=== PATIENT | male | born 1960 | race Caucasian/White ===

== ENCOUNTER 2019-11-04 15:43 | Observation (INO) | payer OTHER ==
[2019-11-04] MEDS ORDERED: Metoprolol Tartrate 5 MG/5 ML SDV IVPUSH ONE ×3 (16:13→16:47)
[2019-11-04] MEDS: Sodium Chloride 0.9% 10 ML Syringe FLUSH PRN (16:21)
[2019-11-04] MEDS ORDERED: Diltiazem 25 MG/5 ML SDV IVPUSH ONE ×2 (16:55→17:12)
[2019-11-04] MEDS ORDERED: Diltiazem 125 MG in Sodium Chloride 0.9% 100 ML IV SCH (17:30)
[2019-11-04] MEDS ORDERED: Ondansetron 4 MG/2 ML SDV IV PRN (17:32)
[2019-11-04] MEDS ORDERED: traMADol 50 MG Tab PO ONE (17:49)
[2019-11-04] MEDS ORDERED: Acetaminophen 500 MG Tab PO ONE (17:49)
[2019-11-04] MEDS ORDERED: Amiodarone 150 MG/3 ML SDV IVPUSH ONE (17:53)
[2019-11-04] MEDS: Nitroglycerin 0.4 MG Tab.SL SL PRN ×2 (18:15→18:20)
[2019-11-04] MEDS ORDERED: Enoxaparin 40 MG/0.4 ML Syringe SUBCUT SCH (18:45)
[2019-11-04] MEDS ORDERED: Sodium Chloride 0.9% 1,000 ML IV SCH (19:00)
[2019-11-04] MEDS: Acetaminophen 325 MG Tab PO PRN (23:37)
--- NOTE | 2019-11-05 00:13 | EDM.PDOC ---
ED HPI GENERAL MEDICAL PROBLEM - General Chief Complaint: Cardiovascular Problem Stated Complaint: HEART ISSUES Time Seen by Provider: 11/04/19 15:45 Source of Information: Reports: Patient History Limitations: Reports: No Limitations - History of Present Illness INITIAL COMMENTS - FREE TEXT/NARRATIVE: Patient presented to the ED from the clinic because of 1 week history of palpitations,chest tightness, dizziness. He also c/o headache but there is no fever chills or neck stiffness. He denies having any dyspnea,or edema but he gained a lot for the past month. An EKG was done in the clinic which showed AFIB with RVR and patient was subsequently referred to be evaluated in the ED. - Related Data Allergies Allergy/AdvReac Type Severity Reaction Status Date / Time No Known Allergies Allergy Verified 11/04/19 16:08 Home Meds: Home Meds Acetaminophen [Pain Relief] 650 mg PO Q4HR PRN 11/04/19 [History] Cannabidiol (Cbd) Extract [CBD Oil] 17 mg PO ASDIRECTED 11/04/19 [History] Past Medical History Respiratory History: Reports: Other (See Below) Other Respiratory History: HAYFEVER Other Gastrointestinal History: HX GASTRIC ULCER FROM [facility], LEFT INGUINAL HERNIA REPAIR,SMALL BOWEL INTUSSUSEPTION Other Genitourinary History: RENAL CYSTS Musculoskeletal History: Reports: Back Pain, Chronic Other Musculoskeletal History: FACET ARTHROPATHY, LUMBAR Hematologic History: Reports: Anemia Oncologic (Cancer) History: Reports: Other (See Below) Other Oncologic History: states has had skin cancer leisons rmoved in the past Dermatologic History: Reports: Melanoma - Infectious Disease History Infectious Disease History: Reports: Chicken Pox, Measles, Mumps - Past Surgical History HEENT Surgical History: Reports: Oral Surgery GI Surgical History: Reports: Colonoscopy, EGD Musculoskeletal Surgical History: Reports: Other (See Below) Social & Family History - Family History Family Medical History: Noncontributory - Tobacco Use Smoking Status *Q: Former Smoker Used Tobacco, but Quit: Yes Month/Year Tobacco Last Used: 08/1998 - Caffeine Use Caffeine Use: Reports: Coffee - Recreational Drug Use Recreational Drug Use: Yes Recreational Drug Type: Reports: Other (see below) Other Recreational Drug Type: cbd oil Recreational Drug Use Frequency: Weekly ED ROS GENERAL - Review of Systems Review Of Systems: See Below Constitutional: Reports: Weight Gain. Denies: Fever, Chills HEENT: Reports: No Symptoms Respiratory: Reports: No Symptoms Cardiovascular: Reports: Chest Pain, Palpitations. Denies: Dyspnea on Exertion Endocrine: Reports: No Symptoms GI/Abdominal: Reports: No Symptoms : Reports: No Symptoms Musculoskeletal: Reports: No Symptoms Skin: Reports: No Symptoms Neurological: Reports: Paresthesia Psychiatric: Reports: No Symptoms ED EXAM, GENERAL - Physical Exam Exam: See Below Exam Limited By: No Limitations General Appearance: Alert, WD/WN, No Apparent Distress Eye Exam: Bilateral Eye: PERRL Ears: Normal External Exam, Normal Canal Nose: Normal Inspection, Normal Mucosa, No Blood Throat/Mouth: Normal Inspection, Normal Lips, Normal Teeth, Normal Gums Head: Atraumatic, Normocephalic Neck: Normal Inspection, Supple, Non-Tender, Full Range of Motion Respiratory/Chest: No Respiratory Distress, Lungs Clear, Normal Breath Sounds, No Accessory Muscle Use, Chest Non-Tender Cardiovascular: Normal Peripheral Pulses, No Edema, No Gallop, No JVD, No Murmur , No Rub, Tachycardia, Irregularly Irregular GI/Abdominal: Normal Bowel Sounds, Soft, Non-Tender, No Organomegaly, No Distention, No Abnormal Bruit, No Mass Back Exam: Normal Inspection, Full Range of Motion Course - Vital Signs Text/Narrative:: labs/EKG was discussed with the patient and verbalized understanding EKG-AFIB with RVR-140's trop-neg Patient was given 3 doses of lopressor 5 mg IV but his HR has not significantly improved. He was given cardizem 25 mg IV x1 with a repeat loading dose of 35 mg IVx1 before he was started on the cardizem drip at 10 mg/hr. He later converted to a sinus rhythm and his second troponin was negative. Last Recorded V/S: Last Vital Signs Temp 36.3 C 11/04/19 23:00 Pulse 70 11/04/19 23:00 Resp 18 11/04/19 23:00 BP 140/79 11/04/19 23:00 Pulse Ox 95 11/04/19 23:00 - Orders/Labs/Meds Orders: Active Orders 24 hr Category Date Time Status Patient Status [ADT] Routine ADT 11/04/19 17:32 Active Cardiac Monitoring [RC] CONTINUOUS Care 11/04/19 17:38 Active EKG Documentation Completion [RC] ASDIRECTED Care 11/04/19 17:45 Active Oxygen Therapy [RC] PRN Care 11/04/19 17:32 Active Pulse Oximetry [RC] CONTINUOUS Care 11/04/19 17:38 Active Up With Assistance [RC] ASDIRECTED Care 11/04/19 17:32 Active VTE/DVT Education [RC] Per Unit Routine Care 11/04/19 17:32 Active Vital Signs [RC] Q4H Care 11/04/19 17:32 Active Heart Healthy Diet [DIET] Diet 11/04/19 Dinner Ordered BASIC METABOLIC PANEL,BMP [CHEM] AM Lab 11/05/19 05:11 Ordered CBC WITH AUTO DIFF [HEME] AM Lab 11/05/19 05:11 Ordered TROPONIN I [CHEM] Stat Lab 11/05/19 06:00 Ordered Diltiazem 125 mg Med 11/04/19 17:30 Active Sodium Chloride 0.9% [Normal Saline] 100 ml IV TITRATE Enoxaparin [Lovenox] Med 11/04/19 18:45 Active 40 mg SUBCUT DAILY Nitroglycerin [Nitrostat] Med 11/04/19 18:15 Active 0.4 mg SL Q5M PRN Ondansetron [Zofran] Med 11/04/19 17:32 Active 4 mg IV Q4H PRN Sodium Chloride 0.9% [Normal Saline] 1,000 ml Med 11/04/19 19:00 Active IV ASDIRECTED Sodium Chloride 0.9% [Saline Flush] Med 11/04/19 16:15 Active 10 ml FLUSH ASDIRECTED PRN Peripheral IV Insertion Adult [OM.PC] Routine Oth 11/04/19 15:45 Ordered Resuscitation Status Routine Resus Stat 11/04/19 17:32 Ordered EKG 12 Lead [EK] AM Ther 11/05/19 05:11 Ordered Medication Orders Acetaminophen (Tylenol) 650 mg PO Q4H PRN PRN Reason: Headache Last Admin: 11/04/19 23:37 Dose: 650 mg Enoxaparin Sodium (Lovenox) 40 mg SUBCUT DAILY DEIDRE Last Admin: 11/04/19 18:48 Dose: 40 mg Diltiazem HCl 125 mg/ Sodium (Chloride) 125 mls @ 5 mls/hr IV TITRATE DEIDRE; Protocol Last Titration: 11/04/19 18:28 Dose: 0 mg/hr, 0 mls/hr Titration: 11/04/19 18:02 Dose: 5 mg/hr, 5 mls/hr Admin: 11/04/19 17:41 Dose: 10 mg/hr, 10 mls/hr Sodium Chloride (Normal Saline) 1,000 mls @ 999 mls/hr IV ASDIRECTED DEIDRE Last Admin: 11/04/19 18:35 Dose: 999 mls/hr Nitroglycerin (Nitrostat) 0.4 mg SL Q5M PRN PRN Reason: Chest Pain Last Admin: 11/04/19 18:20 Dose: 0.4 mg Admin: 11/04/19 18:15 Dose: 0.4 mg Ondansetron HCl (Zofran) 4 mg IV Q4H PRN PRN Reason: Nausea/Vomiting Sodium Chloride (Saline Flush) 10 ml FLUSH ASDIRECTED PRN PRN Reason: Keep Vein Open Last Admin: 11/04/19 16:21 Dose: 10 ml Labs: Laboratory Tests 11/04/19 11/04/19 11/04/19 Range/Units 16:00 16:00 16:00 WBC 5.3 (4.5-12.0) X10-3/uL RBC 5.26 (4.30-5.75) x10(6)uL Hgb 15.8 (13.5-17.8) g/dL Hct 47.7 D (30.0-51.3) % MCV 90.6 (80-96) fL MCH 30.0 (27.7-33.6) pg MCHC 33.1 (32.2-35.4) g/dL RDW 12.2 (11.5-15.5) % Plt Count 161 (125-369) X10(3)uL MPV 8.5 (7.4-10.4) fL Neut % (Auto) 51.7 (46-82) % Lymph % (Auto) 32.1 (13-37) % [place] % (Auto) 14.1 H (4-12) % Eos % (Auto) 2 (1.0-5.0) % Baso % (Auto) 0 (0-2) % Neut # (Auto) 2.8 (1.6-8.3) # Lymph # (Auto) 1.7 (0.6-5.0) # [place] # (Auto) 0.7 (0.0-1.3) # Eos # (Auto) 0.1 (0.0-0.8) # Baso # (Auto) 0.0 (0.0-0.2) # PT 9.9 (8.7-11.1) INR 1.02 (0.89-1.13) APTT 24.4 (24.4-33.2) SECONDS Sodium 142 (135-145) mmol/L Potassium 4.5 (3.5-5.3) mmol/L Chloride 102 (100-110) mmol/L Carbon Dioxide 29 (21-32) mmol/L BUN 17 (7-18) mg/dL Creatinine 0.9 (0.70-1.30) mg/dL Est Cr Clr Drug Dosing TNP Estimated GFR (MDRD) > 60 (>60) BUN/Creatinine Ratio 18.9 (9-20) Glucose 241 H (80-116) mg/dL Calcium 9.4 (8.6-10.2) mg/dL Total Bilirubin 0.5 (0.1-1.3) mg/dL AST 34 H (5-25) IU/L ALT 66 H (12-36) U/L Alkaline Phosphatase 104 (56-112) IU/L Troponin I (<0.017-0.056) ng/mL Total Protein 7.6 (6.0-8.0) g/dL Albumin 3.9 (3.5-5.2) g/dL Globulin 3.7 g/dL Albumin/Globulin Ratio 1.1 11/04/19 11/04/19 Range/Units 16:00 18:06 WBC (4.5-12.0) X10-3/uL RBC (4.30-5.75) x10(6)uL Hgb (13.5-17.8) g/dL Hct (30.0-51.3) % MCV (80-96) fL MCH (27.7-33.6) pg MCHC (32.2-35.4) g/dL RDW (11.5-15.5) % Plt Count (125-369) X10(3)uL MPV (7.4-10.4) fL Neut % (Auto) (46-82) % Lymph % (Auto) (13-37) % [place] % (Auto) (4-12) % Eos % (Auto) (1.0-5.0) % Baso % (Auto) (0-2) % Neut # (Auto) (1.6-8.3) # Lymph # (Auto) (0.6-5.0) # [place] # (Auto) (0.0-1.3) # Eos # (Auto) (0.0-0.8) # Baso # (Auto) (0.0-0.2) # PT (8.7-11.1) INR (0.89-1.13) APTT (24.4-33.2) SECONDS Sodium (135-145) mmol/L Potassium (3.5-5.3) mmol/L Chloride (100-110) mmol/L Carbon Dioxide (21-32) mmol/L BUN (7-18) mg/dL Creatinine (0.70-1.30) mg/dL Est Cr Clr Drug Dosing Estimated GFR (MDRD) (>60) BUN/Creatinine Ratio (9-20) Glucose (80-116) mg/dL Calcium (8.6-10.2) mg/dL Total Bilirubin (0.1-1.3) mg/dL AST (5-25) IU/L ALT (12-36) U/L Alkaline Phosphatase (56-112) IU/L Troponin I < 0.017 L < 0.017 L (<0.017-0.056) ng/mL Total Protein (6.0-8.0) g/dL Albumin (3.5-5.2) g/dL Globulin g/dL Albumin/Globulin Ratio Meds: Medications Generic Name Dose Route Start Last Admin Trade Name Freq PRN Reason Stop Dose Admin Acetaminophen 650 mg 11/04/19 23:22 11/04/19 23:37 Tylenol PO 650 mg Q4H PRN Administration Headache Enoxaparin Sodium 40 mg 11/04/19 18:45 11/04/19 18:48 Lovenox SUBCUT 40 mg DAILY DEIDRE Administration Diltiazem HCl 125 mg/ Sodium 125 mls @ 5 mls/hr 11/04/19 17:30 11/04/19 18:28 Chloride IV 0 mg/hr TITRATE DEIDRE 0 mls/hr Titration Protocol 5 MG/HR Sodium Chloride 1,000 mls @ 999 mls/hr 11/04/19 19:00 11/04/19 18:35 Normal Saline IV 999 mls/hr ASDIRECTED DEIDRE Administration Nitroglycerin 0.4 mg 11/04/19 18:15 11/04/19 18:20 Nitrostat SL 0.4 mg Q5M PRN Administration Chest Pain Ondansetron HCl 4 mg 11/04/19 17:32 Zofran IV Q4H PRN Nausea/Vomiting Sodium Chloride 10 ml 11/04/19 16:15 11/04/19 16:21 Saline Flush FLUSH 10 ml ASDIRECTED PRN Administration Keep Vein Open Discontinued Medications Generic Name Dose Route Start Last Admin Trade Name Freq PRN Reason Stop Dose Admin Acetaminophen 1,000 mg 11/04/19 17:49 Tylenol Extra Strength PO 11/04/19 17:50 ONETIME ONE Diltiazem HCl 25 mg 11/04/19 16:55 11/04/19 17:05 Diltiazem IVPUSH 11/04/19 16:56 25 mg ONETIME ONE Administration Diltiazem HCl 35 mg 11/04/19 17:12 11/04/19 17:27 Diltiazem IVPUSH 11/04/19 17:13 35 mg ONETIME ONE Administration Amiodarone HCl/Dextrose 100 mls @ 400 mls/hr 11/04/19 18:15 Nexterone In Dextrose 150 Mg/100 Ml IV 11/04/19 18:29 ONETIME ONE Metoprolol Tartrate 5 mg 11/04/19 16:13 11/04/19 16:21 Lopressor IVPUSH 11/04/19 16:14 5 mg ONETIME ONE Administration Metoprolol Tartrate 5 mg 11/04/19 16:29 11/04/19 16:37 Lopressor IVPUSH 11/04/19 16:30 5 mg ONETIME ONE Administration Metoprolol Tartrate 5 mg 11/04/19 16:47 11/04/19 16:54 Lopressor IVPUSH 11/04/19 16:48 5 mg ONETIME ONE Administration Tramadol HCl 100 mg 11/04/19 17:49 Ultram PO 11/04/19 17:50 ONETIME ONE Departure - Departure Time of Disposition: 16:55 Disposition: Refer to Observation Condition: Good Clinical Impression: Atrial fibrillation Sepsis Event Note - Evaluation Sepsis Screening Result: No Definite Risk - Focused Exam Vital Signs: Vital Signs Temp Pulse Pulse Resp BP BP Pulse Ox 11/04/19 19:30 36.3 C 75 18 97/52 L 97 11/04/19 18:30 89/69 L 11/04/19 18:20 114/83 11/04/19 18:15 123/95 H 11/04/19 16:54 130 H 131/96 H 11/04/19 16:37 132 H 136/111 H 11/04/19 16:21 138 H 154/112 H 11/04/19 15:45 22 H 163/111 H 95 Date Exam was Performed: 11/05/19 Time Exam was Performed: 00:07 - My Orders Last 24 Hours: My Active Orders 11/04/19 15:45 Peripheral IV Insertion Adult [OM.PC] Routine 11/04/19 16:15 Sodium Chloride 0.9% [Saline Flush] 10 ml FLUSH ASDIRECTED PRN 11/04/19 17:30 Diltiazem 125 mg Sodium Chloride 0.9% [Normal Saline] 100 ml IV TITRATE 11/04/19 17:32 Patient Status [ADT] Routine Oxygen Therapy [RC] PRN Up With Assistance [RC] ASDIRECTED VTE/DVT Education [RC] Per Unit Routine Vital Signs [RC] Q4H Ondansetron [Zofran] 4 mg IV Q4H PRN Resuscitation Status Routine 11/04/19 17:38 Cardiac Monitoring [RC] CONTINUOUS Pulse Oximetry [RC] CONTINUOUS 11/04/19 17:45 EKG Documentation Completion [RC] ASDIRECTED 11/04/19 18:15 Nitroglycerin [Nitrostat] 0.4 mg SL Q5M PRN 11/04/19 18:45 Enoxaparin [Lovenox] 40 mg SUBCUT DAILY 11/04/19 19:00 Sodium Chloride 0.9% [Normal Saline] 1,000 ml IV ASDIRECTED 11/04/19 Dinner Heart Healthy Diet [DIET] 11/05/19 05:11 BASIC METABOLIC PANEL,BMP [CHEM] AM CBC WITH AUTO DIFF [HEME] AM EKG 12 Lead [EK] AM 11/05/19 06:00 TROPONIN I [CHEM] Stat - Assessment/Plan Last 24 Hours: My Active Orders 11/04/19 15:45 Peripheral IV Insertion Adult [OM.PC] Routine 11/04/19 16:15 Sodium Chloride 0.9% [Saline Flush] 10 ml FLUSH ASDIRECTED PRN 11/04/19 17:30 Diltiazem 125 mg Sodium Chloride 0.9% [Normal Saline] 100 ml IV TITRATE 11/04/19 17:32 Patient Status [ADT] Routine Oxygen Therapy [RC] PRN Up With Assistance [RC] ASDIRECTED VTE/DVT Education [RC] Per Unit Routine Vital Signs [RC] Q4H Ondansetron [Zofran] 4 mg IV Q4H PRN Resuscitation Status Routine 11/04/19 17:38 Cardiac Monitoring [RC] CONTINUOUS Pulse Oximetry [RC] CONTINUOUS 11/04/19 17:45 EKG Documentation Completion [RC] ASDIRECTED 11/04/19 18:15 Nitroglycerin [Nitrostat] 0.4 mg SL Q5M PRN 11/04/19 18:45 Enoxaparin [Lovenox] 40 mg SUBCUT DAILY 11/04/19 19:00 Sodium Chloride 0.9% [Normal Saline] 1,000 ml IV ASDIRECTED 11/04/19 Dinner Heart Healthy Diet [DIET] 11/05/19 05:11 BASIC METABOLIC PANEL,BMP [CHEM] AM CBC WITH AUTO DIFF [HEME] AM EKG 12 Lead [EK] AM 11/05/19 06:00 TROPONIN I [CHEM] Stat
[2019-11-05] MEDS: Morphine 4 MG/ML VIAL IVPUSH PRN ×4 (04:56→21:45)
[2019-11-05] MEDS: Sodium Chloride 0.9% 10 ML Syringe FLUSH PRN ×6 (04:56→21:46)
[2019-11-05] MEDS ORDERED: Iopamidol 755 Mg/ML 100 ML Bottle IV ONE (08:08)
--- NOTE | 2019-11-05 08:31 | PCM.HP.2 ---
H&P History of Present Illness - General Date of Service: 11/05/19 Admit Problem/Dx: Admission Diagnosis/Problem Admission Diagnosis/Problem Afib, Atrial fibrillation Source of Information: Patient History Limitations: Reports: No Limitations - History of Present Illness Initial Comments - Free Text/Narative: 59 you a Male with complaints dull cramping abdominal pain,poorly localized. . It is intermittent. Denies diarrhea,vomiting or constipation.Also endorses chest tightness,palpitations,for a few months,worse in the last few days.Endorses mild shortness of breath with exertion. - Related Data Allergies/Adverse Reactions: Allergies Allergy/AdvReac Type Severity Reaction Status Date / Time No Known Allergies Allergy Verified 11/04/19 16:08 Home Medications: Home Meds Acetaminophen [Pain Relief] 650 mg PO Q4HR PRN 11/04/19 [History] Cannabidiol (Cbd) Extract [CBD Oil] 17 mg PO ASDIRECTED 11/04/19 [History] Past Medical History Cardiovascular History: Reports: None Respiratory History: Reports: Other (See Below) Other Respiratory History: HAYFEVER Gastrointestinal History: Reports: Diverticulosis Other Gastrointestinal History: HX GASTRIC ULCER FROM H PYL[facility]I, LEFT INGUINAL HERNIA REPAIR,SMALL BOWEL INTUSSUSEPTION Other Genitourinary History: RENAL CYSTS Musculoskeletal History: Reports: Back Pain, Chronic Other Musculoskeletal History: FACET ARTHROPATHY, LUMBAR Hematologic History: Reports: Anemia Oncologic (Cancer) History: Reports: Other (See Below) Other Oncologic History: states has had skin cancer leisons rmoved in the past Dermatologic History: Reports: Melanoma - Infectious Disease History Infectious Disease History: Reports: Chicken Pox, Measles, Mumps - Past Surgical History HEENT Surgical History: Reports: Oral Surgery GI Surgical History: Reports: Colonoscopy, EGD Musculoskeletal Surgical History: Reports: Other (See Below) Social & Family History - Family History Family Medical History: Noncontributory - Tobacco Use Smoking Status *Q: Former Smoker Used Tobacco, but Quit: Yes Month/Year Tobacco Last Used: 08/1998 - Caffeine Use Caffeine Use: Reports: Coffee - Recreational Drug Use Recreational Drug Use: Yes Recreational Drug Type: Reports: Other (see below) Other Recreational Drug Type: cbd oil Recreational Drug Use Frequency: Weekly H&P Review of Systems - Review of Systems: Review Of Systems: Comprehensive ROS is negative, except as noted in HPI. Exam - Exam Exam: See Below - Vital Signs Vital Signs: Last Vital Signs Temp 97.4 F 11/05/19 05:28 Pulse 71 11/05/19 05:28 Resp 18 11/05/19 05:28 BP 140/95 H 11/05/19 05:28 Pulse Ox 97 11/05/19 05:28 Weight: 116.12 kg - Exam General: Alert, Oriented, 4 HEENT: PERRLA, Hearing Intact, Mucosa Moist & [place], Nares Patent, Normal Nasal Septum, Posterior Pharynx Clear, Conjunctiva Clear, EOMI, EACs Clear, TMs Clear Neck: Supple, Trachea Midline, 2 Lungs: Clear to Auscultation, Normal Respiratory Effort Cardiovascular: Regular Rate, Regular Rhythm GI/Abdominal Exam: Normal Bowel Sounds, Non-Tender, No Organomegaly, No Distention, No Abnormal Bruit, No Mass, Pelvis Stable, Distended, Guarding, Tender (LLQ) (Male) Exam: Deferred Rectal (Males) Exam: Deferred Back Exam: Normal Inspection, Full Range of Motion, NT Extremities: Normal Inspection, Normal Range of Motion, Non-Tender, No Pedal Edema, Normal Capillary Refill Skin: Warm, Dry, Intact Neurological: Cranial Nerves Intact, Reflexes Equal Bilateral Neuro Extensive - Mental Status: Alert, Oriented x3, Normal Mood/Affect, Normal Cognition Neuro Extensive - Motor, Sensory, Reflexes: CN II-XII Intact, Normal Gait, Normal Reflexes Psychiatric: Alert, Normal Affect, Normal Mood - Patient Data Lab Results Last 24 hrs: Laboratory Results - last 24 hr 11/04/19 11/04/19 11/04/19 Range/Units 16:00 16:00 16:00 WBC 5.3 (4.5-12.0) X10-3/uL RBC 5.26 (4.30-5.75) x10(6)uL Hgb 15.8 (13.5-17.8) g/dL Hct 47.7 D (30.0-51.3) % MCV 90.6 (80-96) fL MCH 30.0 (27.7-33.6) pg MCHC 33.1 (32.2-35.4) g/dL RDW 12.2 (11.5-15.5) % Plt Count 161 (125-369) X10(3)uL MPV 8.5 (7.4-10.4) fL Neut % (Auto) 51.7 (46-82) % Lymph % (Auto) 32.1 (13-37) % [place] % (Auto) 14.1 H (4-12) % Eos % (Auto) 2 (1.0-5.0) % Baso % (Auto) 0 (0-2) % Neut # (Auto) 2.8 (1.6-8.3) # Lymph # (Auto) 1.7 (0.6-5.0) # [place] # (Auto) 0.7 (0.0-1.3) # Eos # (Auto) 0.1 (0.0-0.8) # Baso # (Auto) 0.0 (0.0-0.2) # PT 9.9 (8.7-11.1) INR 1.02 (0.89-1.13) APTT 24.4 (24.4-33.2) SECONDS Sodium 142 (135-145) mmol/L Potassium 4.5 (3.5-5.3) mmol/L Chloride 102 (100-110) mmol/L Carbon Dioxide 29 (21-32) mmol/L BUN 17 (7-18) mg/dL Creatinine 0.9 (0.70-1.30) mg/dL Est Cr Clr Drug Dosing TNP Estimated GFR (MDRD) > 60 (>60) BUN/Creatinine Ratio 18.9 (9-20) Glucose 241 H (80-116) mg/dL Calcium 9.4 (8.6-10.2) mg/dL Total Bilirubin 0.5 (0.1-1.3) mg/dL AST 34 H (5-25) IU/L ALT 66 H (12-36) U/L Alkaline Phosphatase 104 (56-112) IU/L Troponin I (<0.017-0.056) ng/mL Total Protein 7.6 (6.0-8.0) g/dL Albumin 3.9 (3.5-5.2) g/dL Globulin 3.7 g/dL Albumin/Globulin Ratio 1.1 11/04/19 11/04/19 11/04/19 Range/Units 16:00 18:06 22:15 WBC (4.5-12.0) X10-3/uL RBC (4.30-5.75) x10(6)uL Hgb (13.5-17.8) g/dL Hct (30.0-51.3) % MCV (80-96) fL MCH (27.7-33.6) pg MCHC (32.2-35.4) g/dL RDW (11.5-15.5) % Plt Count (125-369) X10(3)uL MPV (7.4-10.4) fL Neut % (Auto) (46-82) % Lymph % (Auto) (13-37) % [place] % (Auto) (4-12) % Eos % (Auto) (1.0-5.0) % Baso % (Auto) (0-2) % Neut # (Auto) (1.6-8.3) # Lymph # (Auto) (0.6-5.0) # [place] # (Auto) (0.0-1.3) # Eos # (Auto) (0.0-0.8) # Baso # (Auto) (0.0-0.2) # PT (8.7-11.1) INR (0.89-1.13) APTT (24.4-33.2) SECONDS Sodium (135-145) mmol/L Potassium (3.5-5.3) mmol/L Chloride (100-110) mmol/L Carbon Dioxide (21-32) mmol/L BUN (7-18) mg/dL Creatinine (0.70-1.30) mg/dL Est Cr Clr Drug Dosing Estimated GFR (MDRD) (>60) BUN/Creatinine Ratio (9-20) Glucose (80-116) mg/dL Calcium (8.6-10.2) mg/dL Total Bilirubin (0.1-1.3) mg/dL AST (5-25) IU/L ALT (12-36) U/L Alkaline Phosphatase (56-112) IU/L Troponin I < 0.017 L < 0.017 L < 0.017 L (<0.017-0.056) ng/mL Total Protein (6.0-8.0) g/dL Albumin (3.5-5.2) g/dL Globulin g/dL Albumin/Globulin Ratio 11/05/19 11/05/19 11/05/19 Range/Units 06:50 06:50 06:50 WBC 6.1 (4.5-12.0) X10-3/uL RBC 4.89 (4.30-5.75) x10(6)uL Hgb 14.8 (13.5-17.8) g/dL Hct 44.6 (30.0-51.3) % MCV 91.2 (80-96) fL MCH 30.3 (27.7-33.6) pg MCHC 33.3 (32.2-35.4) g/dL RDW 12.3 (11.5-15.5) % Plt Count 165 (125-369) X10(3)uL MPV 8.7 (7.4-10.4) fL Neut % (Auto) 48.6 (46-82) % Lymph % (Auto) 37.3 H (13-37) % [place] % (Auto) 11.7 (4-12) % Eos % (Auto) 2 (1.0-5.0) % Baso % (Auto) 1 (0-2) % Neut # (Auto) 3.0 (1.6-8.3) # Lymph # (Auto) 2.3 (0.6-5.0) # [place] # (Auto) 0.7 (0.0-1.3) # Eos # (Auto) 0.1 (0.0-0.8) # Baso # (Auto) 0.0 (0.0-0.2) # PT (8.7-11.1) INR (0.89-1.13) APTT (24.4-33.2) SECONDS Sodium 141 (135-145) mmol/L Potassium 4.4 (3.5-5.3) mmol/L Chloride 104 (100-110) mmol/L Carbon Dioxide 32 (21-32) mmol/L BUN 15 (7-18) mg/dL Creatinine 0.8 (0.70-1.30) mg/dL Est Cr Clr Drug Dosing 102.66 Estimated GFR (MDRD) > 60 (>60) BUN/Creatinine Ratio 18.8 (9-20) Glucose 165 H (80-116) mg/dL Calcium 9.0 (8.6-10.2) mg/dL Total Bilirubin (0.1-1.3) mg/dL AST (5-25) IU/L ALT (12-36) U/L Alkaline Phosphatase (56-112) IU/L Troponin I < 0.017 L (<0.017-0.056) ng/mL Total Protein (6.0-8.0) g/dL Albumin (3.5-5.2) g/dL Globulin g/dL Albumin/Globulin Ratio Result Diagrams: 11/05/19 06:50 11/05/19 06:50 EKG INTERPRETATION EKG Date: 11/04/19 Rhythm: A-Flutter Sepsis Event Note - Evaluation Sepsis Screening Result: No Definite Risk - Focused Exam Vital Signs: Vital Signs Temp Pulse Resp BP Pulse Ox Pulse Ox 11/05/19 05:28 97.4 F 71 18 140/95 H 97 11/05/19 03:34 94 L 11/05/19 03:00 66 18 132/74 95 11/04/19 23:00 97.4 F 70 18 140/79 95 Date Exam was Performed: 11/05/19 Time Exam was Performed: 08:43 - Problem List (1) Atrial fibrillation SNOMED Code(s): 23164359 ICD Code: I48.91 - UNSPECIFIED ATRIAL FIBRILLATION Status: Acute Current Visit: Yes Qualifiers: Atrial fibrillation type: paroxysmal Qualified Code(s): I48.0 - Paroxysmal atrial fibrillation (2) Abdominal pain SNOMED Code(s): 34192261 ICD Code: R10.9 - UNSPECIFIED ABDOMINAL PAIN Status: Acute Current Visit : Yes Qualifiers: Abdominal location: left lower quadrant Qualified Code(s): R10.32 - Left lower quadrant pain (3) Obesity SNOMED Code(s): 666951618, 447682598 ICD Code: E66.9 - OBESITY, UNSPECIFIED Status: Acute Current Visit: Yes (4) Chest pain SNOMED Code(s): 27255814 ICD Code: R07.9 - CHEST PAIN, UNSPECIFIED Status: Acute Current Visit: Yes Problem List Initiated/Reviewed/Updated: Yes Orders Last 24hrs: Active Orders 24 hr Category Date Time Status Patient Status [ADT] Routine ADT 11/04/19 17:32 Active Cardiac Monitoring [RC] CONTINUOUS Care 11/04/19 17:38 Active EKG Documentation Completion [RC] ASDIRECTED Care 11/04/19 17:45 Active Incentive Spirometry [RT Incentive Spirometry] [RC] Care 11/04/19 23:23 Active Q2HWA Oxygen Therapy [RC] PRN Care 11/04/19 17:32 Active Pulse Oximetry [RC] CONTINUOUS Care 11/04/19 17:38 Active Up With Assistance [RC] ASDIRECTED Care 11/04/19 17:32 Active VTE/DVT Education [RC] Per Unit Routine Care 11/04/19 17:32 Active Vital Signs [RC] Q4H Care 11/04/19 17:32 Active Heart Healthy Diet [DIET] Diet 11/04/19 Dinner Ordered Abdomen Pelvis w Cont [CT] Routine Exams 11/05/19 04:44 Ordered Acetaminophen [Tylenol] Med 11/04/19 23:22 Active 650 mg PO Q4H PRN Diltiazem 125 mg Med 11/04/19 17:30 Active Sodium Chloride 0.9% [Normal Saline] 100 ml IV TITRATE Enoxaparin [Lovenox] Med 11/05/19 18:00 Active 40 mg SUBCUT Q24H Morphine Sulfate [Morphine] Med 11/05/19 04:38 Active 4 mg IVPUSH Q4H PRN Nitroglycerin [Nitrostat] Med 11/04/19 18:15 Active 0.4 mg SL Q5M PRN Ondansetron [Zofran] Med 11/04/19 17:32 Active 4 mg IV Q4H PRN Sodium Chloride 0.9% [Normal Saline] 1,000 ml Med 11/04/19 19:00 Active IV ASDIRECTED Sodium Chloride 0.9% [Saline Flush] Med 11/04/19 16:15 Active 10 ml FLUSH ASDIRECTED PRN Peripheral IV Insertion Adult [OM.PC] Routine Oth 11/04/19 15:45 Ordered Resuscitation Status Routine Resus Stat 11/04/19 17:32 Ordered EKG 12 Lead [EK] AM Ther 11/05/19 05:11 Ordered Medication Orders Acetaminophen (Tylenol) 650 mg PO Q4H PRN PRN Reason: Headache Last Admin: 11/04/19 23:37 Dose: 650 mg Enoxaparin Sodium (Lovenox) 40 mg SUBCUT Q24H DEIDRE Diltiazem HCl 125 mg/ Sodium (Chloride) 125 mls @ 5 mls/hr IV TITRATE DEIDRE; Protocol Last Titration: 11/04/19 18:28 Dose: 0 mg/hr, 0 mls/hr Titration: 11/04/19 18:02 Dose: 5 mg/hr, 5 mls/hr Admin: 11/04/19 17:41 Dose: 10 mg/hr, 10 mls/hr Sodium Chloride (Normal Saline) 1,000 mls @ 999 mls/hr IV ASDIRECTED DEIDRE Last Admin: 11/04/19 18:35 Dose: 999 mls/hr Morphine Sulfate (Morphine) 4 mg IVPUSH Q4H PRN PRN Reason: Pain Last Admin: 11/05/19 04:56 Dose: 4 mg Nitroglycerin (Nitrostat) 0.4 mg SL Q5M PRN PRN Reason: Chest Pain Last Admin: 11/04/19 18:20 Dose: 0.4 mg Admin: 11/04/19 18:15 Dose: 0.4 mg Ondansetron HCl (Zofran) 4 mg IV Q4H PRN PRN Reason: Nausea/Vomiting Sodium Chloride (Saline Flush) 10 ml FLUSH ASDIRECTED PRN PRN Reason: Keep Vein Open Last Admin: 11/05/19 04:56 Dose: 10 ml Admin: 11/04/19 16:21 Dose: 10 ml Assessment/Plan Comment:: Keep him NPO. Obtain CT chest abd pelvis. Start empiric IV abx for Acute diverticulitis - Mortality Measure Prognosis:: Good
[2019-11-05] MEDS ORDERED: Sodium Chloride 0.9% 1,000 ML IV SCH (08:45)
[2019-11-05] MEDS: Ciprofloxacin in D5W 400 MG in Premix Bag 1 BAG IV SCH ×4 (09:41→20:13)
[2019-11-05] MEDS: metroNIDAZOLE/Normal Saline 500 MG in Premix Bag 1 BAG IV SCH ×2 (10:40→17:26)
--- NOTE | 2019-11-05 11:11 | CT ---
INDICATION: Chest pain, question PE. Patient has new onset of atrial fibrillation. COMPUTERIZED TOMOGRAPHY ANGIOGRAPHY OF THE CHEST, ABDOMEN, AND PELVIS WITH CONTRAST: Spiral 1.25 mm axial sections were obtained through the chest with 100 mL Isovue -370 at 2 mL per second with sagittal and coronal reconstructions 11/05/19. No comparison study was available. Subsequently, CT of the abdomen and pelvis was obtained with helical 3.75 mm images with sagittal and coronal reconstructions. No comparisons were available. Total exam DLP was 2321.40 mGy-cm. COMPUTERIZED TOMOGRAPHY ANGIOGRAPHY OF THE CHEST: Examination of the chest was obtained as noted above. Mediastinal lymphadenopathy is noted of mild to moderate degree with 1 lymph node of relatively prominent size measuring 21 mm to the left of the trachea and to the right of the aorta. Etiology is indeterminate. No mediastinal mass was seen. The heart is normal in size. No pericardial effusion was seen. There are multiple tiny nodules present most likely post granulomatous or slightly enlarged lymph nodes. No dominant mass was identified to suggest malignancy. Since the patient has a significant history of smoking (25 years up to 3 packs per day) a followup CT scan for surveillance of this nodularity is recommended in 1 year. No gross consolidating pneumonia or effusion was seen. However, there are heavy markings at both lung bases, right greater than left which could represent minimal patchy bronchopneumonia or even neoplastic process. If old films are available for comparison, they may be helpful. More likely the changes which are most nodule and slightly suspicious, are noted at the right lower lobe at the lung base. For this area of the right lower lobe, a short- term followup CT without IV contrast is recommended in 3 months. There is pleural thickening bilaterally most prominent at the lung bases which could be on the basis of previous inflammatory disease, there is no calcification to strongly suggest asbestosis. A mild dextroconvex scoliosis of the lower middle thoracic spine is noted with mild hypertrophic changes of vertebral bodies anterolaterally mostly in that area. No evidence of pulmonary emboli could be identified. IMPRESSION: 1. No evidence of pulmonary emboli. 2. Bibasilar parenchymal changes which may be fibrotic in nature, however the possibility of patchy pneumonia would be a consideration, especially at the right lung base where findings are more prominent. There also is some minimal nodularity at the right lung base and a short-term followup CT of the chest without IV contrast is recommended in 3 months to confirm stability or resolution in that area. 3. Pleural thickening mostly mid to lower basilar pleural spaces likely on the basis of pleural fibrosis, etiology indeterminate. 4. Minimal ASD aorta with calcification in the arch, minimal coronary artery calcification also noted. 5. Scoliosis with DJD lower middle thoracic spine. 6. Multinodularity likely post granulomatous, followup screening protocol for lung cancer recommended in 1 year to follow these nodules and especially in this patient with previous extensive smoking history. Report was called to Dr. Holder at 1047 hours. INDICATION: Pain to left lower rib area extending to iliac crest on the left. Pain comes and goes. CT OF THE ABDOMEN AND PELVIS: Examination of the abdomen was obtained by CT as noted above. The appendix appeared normal, visualized on the coronal images 46 through 54. The spleen had a normal appearance with a probable tiny splenule near the anterior hilum of the spleen. The pancreas appeared normal. The liver had a normal appearance. Common bile duct was normal caliber. The gallbladder is distended in appearance measuring approximately 8 x 6 cm, no definite calculi were seen. No wall thickening or pericholecystic fluid was noted. The right kidney appeared normal except for a tiny 7 mm cyst in the lower pole cortex posteriorly. The left kidney demonstrated an upper pole probable simple cyst with an unusual shape, somewhat like a snowman measuring a maximum of 26 x 38 mm. The left kidney was otherwise unremarkable. The adrenal glands were unremarkable. No retroperitoneal masses were seen. Retroperitoneal lymphadenopathy was minimal and nonspecific. Minimal calcifications are noted in the abdominal aorta and iliac as well as right femoral arteries. The urinary bladder was unremarkable. The prostate did not appear to be significantly enlarged. No hernias were seen. No evidence of free air or bowel obstruction was identified. Sigmoid diverticulosis is mild to moderate without evidence of diverticulitis. IMPRESSION: 1. No definite etiology for the patient's left-sided pain in the abdomen. 2. Somewhat distended appearing gallbladder of questionable significance, no calculi demonstrated but cannot be excluded with CT. 3. Small probable simple cyst, unusual in shape at the upper pole posterior cortex, mostly exophytic left kidney with a tiny cyst at the lower pole posterior cortex of the right kidney. 4. Sigmoid diverticulosis without definite evidence of diverticulitis. Report was called to Dr. Holder at 1047 hours. [facility]
[2019-11-05] MEDS ORDERED: Enoxaparin 40 MG/0.4 ML Syringe SUBCUT SCH (18:00)
[2019-11-05] MEDS ORDERED: Diltiazem 25 MG/5 ML SDV IVPUSH ONE (22:27)
[2019-11-06] MEDS: metroNIDAZOLE/Normal Saline 500 MG in Premix Bag 1 BAG IV SCH (01:24)
[2019-11-06] MEDS: Sodium Chloride 0.9% 10 ML Syringe FLUSH PRN ×7 (01:24→09:14)
[2019-11-06] MEDS ORDERED: Diltiazem 25 MG/5 ML SDV IVPUSH ONE (04:26)
[2019-11-06] MEDS: Nitroglycerin 0.4 MG Tab.SL SL PRN ×2 (04:26→04:32)
[2019-11-06] MEDS ORDERED: HYDROmorphone 2 MG/ML SDV IVPUSH ONE ×2 (04:30→04:48)
[2019-11-06] MEDS: Acetaminophen 325 MG Tab PO PRN (04:38)
[2019-11-06] MEDS: Ciprofloxacin in D5W 400 MG in Premix Bag 1 BAG IV SCH ×2 (09:15)
--- NOTE | 2019-11-06 09:27 | DISCH ---
DISCHARGE DATE: 11/06/2019 REASON FOR ADMISSION: 1. Atrial flutter/atrial fibrillation. 2. Abdominal pain. DISCHARGE DIAGNOSES: 1. Intractable chest pain. 2. Atrial flutter. 3. Abdominal pain. 4. Obstructive sleep apnea. 5. Obesity. 6. History of tobacco abuse. BRIEF HISTORY AND HOSPITAL COURSE: A 59-year-old male who came in with chest pain, palpitations, abdominal pain. He endorsed these symptoms over a period of a week. He was found to be in atrial flutter and atrial fibrillation, which was treated with IV Cardizem. However, his pain has persisted despite negative troponins, and as a result, we have decided to send him to [facility] for further cardiac workup. I spent more than 35 minutes in discharge of the patient. /[id number] ARRON/CITLALY
[2019-11-06 09:38] VITALS: BP 138/110; PULSE 122
== END 2019-11-06 09:20 ==
LOC: FB.ED 15:43 → FB.MS 19:30
PROVIDERS: ADMIT Emergency Medicine; ATTEND Family Medicine
DX: I48.0 Paroxysmal atrial fibrillation (principal); I48.92 Unspecified atrial flutter; R07.89 Other chest pain; G47.33 Obstructive sleep apnea (adult) (pediatric); E66.9 Obesity, unspecified; Z87.891 Personal history of nicotine dependence; Z68.36 Body mass index [BMI] 36.0-36.9, adult
CPT/HCPCS: 36415; 71275; 74177; 80048; 80053; 84443; 84484; 85025; 85610; 85730; 93005; 94150; 94760; 96365; 96366; 96367; 96372; 96375; 96376; 99285; A9270; G0378; J0744; J1170; J1650; J2270; J2405; J3490; J7030; J7050; Q9967

== ENCOUNTER 2021-02-03 19:42 | Emergency (ER) | payer MEDICARE, OTHER ==
[2021-02-03 19:55] VITALS: BP 156/101; PULSE 70
[2021-02-03] MEDS ORDERED: Acetaminophen/oxyCODONE 325-5 MG Tab PO STA (20:16)
[2021-02-03] MEDS ORDERED: Cyclobenzaprine 10 MG Tab PO STA (20:16)
[2021-02-03] MEDS ORDERED: Ketorolac 60 MG/2 ML SDV IM STA (22:31)
[2021-02-03] MEDS ORDERED: HYDROmorphone 2 MG/ML SDV IM STA (22:31)
--- NOTE | 2021-02-03 22:53 | EDM.PDOC ---
ED HPI GENERAL MEDICAL PROBLEM - General Stated Complaint: ARM Time Seen by Provider: 02/03/21 20:00 Source of Information: Reports: Patient History Limitations: Reports: No Limitations - History of Present Illness INITIAL COMMENTS - FREE TEXT/NARRATIVE: Patient presented to the ED because of RUE pain. He apparently lefted a 90 lb compressor and heard a snap on his right shoulder, elbow and pain radiates to his lower arm and hand. Pain is sharp,10/10. Right Arm Pain Score (Numeric/FACES): 9 - Related Data Allergies Allergy/AdvReac Type Severity Reaction Status Date / Time No Known Allergies Allergy Verified 11/04/19 16:08 Home Meds: Home Meds Acetaminophen [Pain Relief] 650 mg PO Q4HR PRN 11/04/19 [History] Cannabidiol (Cbd) Extract [CBD Oil] 17 mg PO ASDIRECTED 11/04/19 [History] Acetaminophen/oxyCODONE [Percocet 325-5 MG] 1 - 2 each PO Q4H PRN #10 tab 02/03/21 [Rx] Cyclobenzaprine [Flexeril] 10 mg PO Q8H PRN #30 tab 02/03/21 [Rx] Past Medical History Cardiovascular History: Reports: None Respiratory History: Reports: Other (See Below) Other Respiratory History: HAYFEVER Gastrointestinal History: Reports: Diverticulosis Other Gastrointestinal History: HX GASTRIC ULCER FROM H PYLORI, LEFT INGUINAL HERNIA REPAIR,SMALL BOWEL INTUSSUSEPTION Other Genitourinary History: RENAL CYSTS Musculoskeletal History: Reports: Back Pain, Chronic Other Musculoskeletal History: FACET ARTHROPATHY, LUMBAR Hematologic History: Reports: Anemia Oncologic (Cancer) History: Reports: Other (See Below) Other Oncologic History: states has had skin cancer leisons rmoved in the past Dermatologic History: Reports: Melanoma - Infectious Disease History Infectious Disease History: Reports: Chicken Pox, Measles, Mumps - Past Surgical History HEENT Surgical History: Reports: Oral Surgery GI Surgical History: Reports: Colonoscopy, EGD Musculoskeletal Surgical History: Reports: Other (See Below) Social & Family History - Family History Family Medical History: No Pertinent Family History - Caffeine Use Caffeine Use: Reports: Coffee Review of Systems - Review of Systems Review Of Systems: See Below Constitutional: Reports: No Symptoms Eyes: Reports: No Symptoms Ears: Reports: No Symptoms Nose: Reports: No Symptoms Mouth/Throat: Reports: No Symptoms Respiratory: Reports: No Symptoms Cardiovascular: Reports: No Symptoms GI/Abdominal: Reports: No Symptoms Genitourinary: Reports: No Symptoms Musculoskeletal: Reports: Shoulder Pain, Arm Pain Skin: Reports: No Symptoms Neurological: Reports: No Symptoms Psychiatric: Reports: No Symptoms ED EXAM, GENERAL - Physical Exam Exam: See Below Exam Limited By: No Limitations General Appearance: Alert, No Apparent Distress Ears: Normal External Exam, Normal Canal Nose: Normal Inspection, Normal Mucosa, No Blood Throat/Mouth: Normal Inspection, Normal Lips, Normal Teeth Head: Atraumatic, Normocephalic Neck: Normal Inspection, Supple, Non-Tender, Full Range of Motion Respiratory/Chest: No Respiratory Distress, Lungs Clear, Normal Breath Sounds, No Accessory Muscle Use, Chest Non-Tender Cardiovascular: Normal Peripheral Pulses, Regular Rate, Rhythm, No Edema, No Gallop, No JVD, No Murmur, No Rub GI/Abdominal: Normal Bowel Sounds, Soft, Non-Tender, No Organomegaly, No Distention, No Abnormal Bruit Back Exam: Normal Inspection, Full Range of Motion Extremities: Normal Inspection, Other (tenderness rt shoulder,elbow,arm) Neurological: Alert, Oriented, CN II-XII Intact Psychiatric: Normal Affect Skin Exam: Warm Course - Vital Signs Text/Narrative:: xray rt shoulder,elbow,wrist-see result Toradol 60 mg PO x1 Percocet 5/325, 2 po x1 Flexeril 10 mg po x1 Dilaudid 2 mg IM x1 Last Recorded V/S: Last Vital Signs Temp 36.8 C 02/03/21 19:54 Pulse 70 02/03/21 19:54 Resp 18 02/03/21 19:54 BP 156/101 H 02/03/21 19:54 Pulse Ox 94 L 02/03/21 19:54 - Orders/Labs/Meds Orders: Active Orders 24 hr Category Date Time Status Elbow Min 3V Rt [CR] Stat Exams 02/03/21 22:55 Taken Shoulder Comp Rt [CR] Stat Exams 02/03/21 22:55 Taken Wrist Comp Min 3V Rt [CR] Stat Exams 02/03/21 22:55 Taken Meds: Medications Discontinued Medications Generic Name Dose Route Start Last Admin Trade Name Freq PRN Reason Stop Dose Admin Cyclobenzaprine HCl 10 mg 02/03/21 20:16 02/03/21 20:22 Cyclobenzaprine 10 Mg Tab PO 02/03/21 20:17 10 mg NOW STA Administration Hydromorphone HCl 2 mg 02/03/21 22:31 02/03/21 22:48 Hydromorphone 2 Mg/Ml Sdv IM 02/03/21 22:32 2 mg NOW STA Administration Ketorolac Tromethamine 60 mg 02/03/21 22:31 02/03/21 22:48 Ketorolac 60 Mg/2 Ml Sdv IM 02/03/21 22:32 60 mg NOW STA Administration Oxycodone/Acetaminophen 2 tab 02/03/21 20:16 02/03/21 20:22 Acetaminophen/Oxycodone 325-5 Mg Tab PO 02/03/21 20:17 2 tab NOW STA Administration Departure - Departure Time of Disposition: 23:00 Disposition: Home, Self-Care 01 Condition: Good Clinical Impression: Upper extremity injury - Discharge Information Prescriptions: Cyclobenzaprine [Flexeril] 10 mg PO Q8H PRN #30 tab PRN Reason: Spasms Acetaminophen/oxyCODONE [Percocet 325-5 MG] 1 - 2 each PO Q4H PRN #10 tab PRN Reason: Pain Instructions: Musculoskeletal Pain Referrals: Thomas Alcaraz PA [Primary Care Provider] - Forms: ED Department Discharge Additional Instructions: Please read discharge instructions on upper extremity injury Apply ice Take Ibuprofen 800 mg with tylenol 1000 mg every 8 hours as needed for mild to moderate pain Percocet 5/325, take 1-2 tablets every 4-6 hours as needed for severe pain Follow up with your doctor this week Sepsis Event Note (ED) - Evaluation Sepsis Screening Result: No Definite Risk - Focused Exam Vital Signs: Vital Signs Temp Pulse Resp BP Pulse Ox 02/03/21 19:54 36.8 C 70 18 156/101 H 94 L - My Orders Last 24 Hours: My Active Orders 02/03/21 22:55 Elbow Min 3V Rt [CR] Stat Shoulder Comp Rt [CR] Stat Wrist Comp Min 3V Rt [CR] Stat - Assessment/Plan Last 24 Hours: My Active Orders 02/03/21 22:55 Elbow Min 3V Rt [CR] Stat Shoulder Comp Rt [CR] Stat Wrist Comp Min 3V Rt [CR] Stat
--- NOTE | 2021-02-04 14:35 | CR ---
INDICATION: Upper extremity injury, felt a pop when lifting 90 pound transmission. RIGHT WRIST: Three views of the right wrist were obtained 02/03/21 - no comparisons. Moderate degenerative change is noted at the naviculomultangular joints and first metacarpocarpal joint and to a mild degree at the first metacarpophalangeal joint. Mild degenerative are also noted at the radiocarpal joint. An acute fracture or dislocation was not identified. IMPRESSION: 1. No acute fracture or dislocation. 2. Osteoarthritis. MTDD
--- NOTE | 2021-02-04 14:40 | CR ---
INDICATION: [place] a pop anterior in his elbow, proximal forearm, pain radiating to wrist and shoulder after lifting 90 pound transmission. RIGHT ELBOW: Three views of the right elbow were obtained and revealed degenerative changes at the radioulnar interface and at the medial elbow joint compartment with hypertrophic lipping. Joint spaces appear to be fairly well maintained, however. There are some hypertrophic changes along the lateral aspect of the distal humeral metaphysis which may be on the basis of previous injury. There is also noted a posterior cranial aspect olecranon process spur of moderate size. No evidence of an acute fracture or dislocation was identified. IMPRESSION: 1. No acute fracture or dislocation. 2. Osteoarthritis. 3. Olecranon spur. 4. Hypertrophic change off the lateral aspect of the distal humerus which could questionably cause impingement of the radial nerve - correlate clinically. MTDD
--- NOTE | 2021-02-04 14:43 | CR ---
INDICATION: [place] a pop anterior in his elbow, proximal forearm, pain radiating to wrist and shoulder after lifting 90 pound transmission. RIGHT SHOULDER: Three views of the right shoulder were obtained and revealed moderate degenerative hypertrophic changes at the AC joint, but with only very minimal degenerative change at the glenohumeral joint with the joint spaces well maintained at the glenohumeral and slightly narrowed at the AC joint. An acute fracture or dislocation was not identified. MTDD
== END 2021-02-03 23:19 | disposition home or self-care (01) ==
LOC: FB.ED 19:42
DX: S49.91XA Unspecified injury of right shoulder and upper arm, initial encounter (principal); X50.0XXA Overexertion from strenuous movement or load, initial encounter
CPT/HCPCS: 73030; 73080; 73110; 96372; 99283; A9270; J1170; J1885

== ENCOUNTER 2021-10-24 09:26 | Emergency (ER) | payer BC, MEDICARE ==
[2021-10-24] MEDS ORDERED: Metoprolol Succinate 100 MG Tab.ER PO ONE (09:36)
[2021-10-24 10:26] VITALS: BP 153/108; PULSE 62
--- NOTE | 2021-10-25 08:59 | ER ---
DATE SEEN: 10/24/2021 HISTORY OF PRESENT ILLNESS: Narciso is a 61-year-old male who has atrial fibrillation. He ran out of his metoprolol and he would like a refill. He has no cardiopulmonary symptoms. PAST MEDICAL HISTORY: Atrial fibrillation, anemia, obesity. ALLERGIES: None. PHYSICAL EXAMINATION: VITAL SIGNS: Afebrile, normotensive. GENERAL: No distress. CARDIOVASCULAR: Irregularly irregular rate. IMPRESSION: Atrial fibrillation. PLAN: I gave him 2 tablets and advised him to see his PCP on Tuesday for a refill. /[id number] AR[place]/CITLALY
== END 2021-10-24 10:30 | disposition home or self-care (01) ==
LOC: FB.ED 09:26
DX: I48.91 Unspecified atrial fibrillation (principal); E66.9 Obesity, unspecified
CPT/HCPCS: 99284; A9270